=== PATIENT | male | born 1970 | race Caucasian/White ===

== ENCOUNTER → 2017-02-09 | Outpatient (CLI) | payer OTHER ==
[~2017-02-09] VITALS: Ht 168.9 cm; Wt 86.2 kg
[~2017-02-09] MED LIST: COREG12.5 M1 PO; ISENTRESS400 MG PO; PRILOSEC20 MG PO; TRIUMEQ TABLET1 EACH PO; TRUVADA1 TABLET PO; ZESTRIL2.5 MG PO; ZOVIRAX200 MG PO
== END | disposition home or self-care (01) ==
LOC: AMB 06:34
DX: R13.10 Dysphagia, unspecified (principal); K29.70 Gastritis, unspecified, without bleeding; K20.9 Esophagitis, unspecified; K21.9 Gastro-esophageal reflux disease without esophagitis; I10 Essential (primary) hypertension; E78.5 Hyperlipidemia, unspecified; I42.9 Cardiomyopathy, unspecified; Z95.810 Presence of automatic (implantable) cardiac defibrillator; B20 Human immunodeficiency virus [HIV] disease
CPT/HCPCS: 88305; 88342 TC; J1100; J2250; J2405

== ENCOUNTER → 2017-06-01 | Outpatient (CLI) | payer OTHER ==
[~2017-06-01] VITALS: Ht 167.6 cm; Wt 89.4 kg
== END | disposition home or self-care (01) ==
LOC: AMB 05-18 07:00 → OPR 05-18 08:45 → AMB 06:53
DX: R19.7 Diarrhea, unspecified (principal); K64.8 Other hemorrhoids; Z95.0 Presence of cardiac pacemaker
CPT/HCPCS: 88305; J2250